=== PATIENT | female | born 1990 | race Caucasian/White ===

== ENCOUNTER 2016-11-05 19:26 | Emergency (ER) | payer OTHER ==
[2016-11-05 20:28] VITALS: BP 127/78; PULSE 91; RESP 18; TEMP 96.3
--- NOTE | 2016-11-05 21:08 | ED ---
ENT HPI - General Chief complaint: ENT Stated complaint: ENT Time Seen by Provider: 11/05/16 20:34 Source: patient, RN notes reviewed, old records reviewed Mode of arrival: ambulatory Limitations: no limitations - History of Present Illness Initial comments: Jone 26-year-old [employer] chief complaint of bilateral ear pain for the past 4 days. Patient reports she can any decongestants. She states that she no cough , fever or chills. Patient reports she has a history of ear tubes. She states that she believes that they did follow out. She denies any significant headache. She denies any pain or tenderness behind her ears. She reports that the right ear feels full, in the left ear she is concerned there is ear wax in it.Patient denies any recent fever, chills, shortness of breath, chest pain, back pain, abdominal pain, nausea vomiting, numbness or tingling, dysuria or hematuria, constipation or diarrhea, headaches or visual changes, or any other current symptoms - Related Data Home Medications Medication Instructions Recorded Confirmed Methadone HCl 60 mg PO DAILY 03/28/15 03/28/15 Previous Rx's Medication Instructions Recorded Ibuprofen [Motrin] 800 mg PO Q8HR #30 tab 03/28/15 Amoxic-Pot Clav 875-125Mg 1 tab PO Q12HR #20 tablet 11/05/16 [Augmentin 875-125] Ofloxacin 0.3% Otic Soln [Floxin 10 drops BOTH EARS BID #1 bottle 11/05/16 0.3% Otic Soln] guaiFENesin-DM 600/30MG [Mucinex 1 each PO Q12HR #20 tab.er.12h 11/05/16 Dm] Allergies Allergy/AdvReac Type Severity Reaction Status Date / Time No Known Allergies Allergy Verified 11/05/16 20:26 Review of Systems ROS Statement: Those systems with pertinent positive or pertinent negative responses have been documented in the HPI. ROS Other: All systems not noted in ROS Statement are negative. Past Medical History Past Medical History: No Reported History History of Any Multi-Drug Resistant Organisms: None Reported Past Surgical History: Section Past Psychological History: Anxiety Smoking Status: Current every day smoker Past Alcohol Use History: None Reported Past Drug Use History: None Reported General Exam - General Exam Comments Initial Comments: Jone 26-year-old female. No distress. Limitations: no limitations General appearance: alert, in no apparent distress Head exam: Present: atraumatic, normocephalic, normal inspection Eye exam: Present: normal appearance, PERRL, EOMI. Absent: scleral icterus, conjunctival injection, periorbital swelling ENT exam: Present: normal exam, mucous membranes moist, TM's normal bilaterally (Left ear canal does have cerumen. TM is visualized is erythematous. Right TM is. Evidence of scarring over the TM. Evidence of fluid behind the TM.) Neck exam: Present: normal inspection. Absent: tenderness, meningismus, lymphadenopathy Respiratory exam: Present: normal lung sounds bilaterally. Absent: respiratory distress, wheezes, rales, rhonchi, stridor Cardiovascular Exam: Present: regular rate, normal rhythm, normal heart sounds. Absent: systolic murmur, diastolic murmur, rubs, gallop, clicks GI/Abdominal exam: Present: soft, normal bowel sounds. Absent: distended, tenderness, guarding, rebound, rigid Extremities exam: Present: normal inspection, full ROM, normal capillary refill. Absent: tenderness, pedal edema, joint swelling, calf tenderness Back exam: Present: normal inspection Neurological exam: Present: alert, oriented X3, CN II-XII intact Psychiatric exam: Present: normal affect, normal mood Skin exam: Present: warm, dry, intact, normal color. Absent: rash Course Vital Signs 11/05/16 20:26 Temperature 96.3 F L Pulse Rate 91 Respiratory 18 Rate Blood Pressure 127/78 O2 Sat by Pulse 100 Oximetry Medical Decision Making - Medical Decision Making Patient is 26-year-old female chief complaint of bilateral ear pain for the past 3 days. She is not taking any decongestants. Right TM does have significant fluid behind the ear. Rinse of bulging. Left TM is erythematous. There is cerumen in the left TM. Discussed we'll put the patient on eardrops as well as taking oral medications. Advised reports a taking ALLERGY medication and decongestant medicine. Patient reports that she plan will comply. Return parameters were discussed. Disposition Clinical Impression: Otitis media, Ear congestion Disposition: HOME SELF-CARE Condition: Good Instructions: Earache (ED) Additional Instructions: is follow-up with primary care provider. Patient is follow-up with ENT specialist after completing antibiotics and drops. Return to emergency Department if any alarming signs or symptoms occur. Prescriptions: Amoxic-Pot Clav 875-125Mg [Augmentin 875-125] 1 tab PO Q12HR #20 tablet Ofloxacin 0.3% Otic Soln [Floxin 0.3% Otic Soln] 10 drops BOTH EARS BID #1 bottle guaiFENesin-DM 600/30MG [Mucinex Dm] 1 each PO Q12HR #20 tab.er.12h Referrals: None,Stated [Primary Care Provider] - 1-2 days Gustavo Latif MD [STAFF PHYSICIAN] - 1-2 days Time of Disposition: 21:06
== END 2016-11-05 21:13 | disposition home or self-care (01) ==
LOC: EC 19:26
DX: H66.93 Otitis media, unspecified, bilateral (principal); F17.200 Nicotine dependence, unspecified, uncomplicated; Z79.891 Long term (current) use of opiate analgesic
CPT/HCPCS: 99283

== ENCOUNTER 2018-04-10 14:48 | Emergency (ER) | payer BC, OTHER ==
[2018-04-10 14:59] VITALS: BP 150/85; PULSE 89; RESP 18; TEMP 98
[2018-04-10] MEDS ORDERED: HYDROcodone/APAP 5-325MG 1 EACH TAB PO STA (15:21)
--- NOTE | 2018-04-10 15:38 | ED ---
General Adult HPI - General Chief complaint: Dental/Oral Stated complaint: Dental pain Time Seen by Provider: 04/10/18 15:06 Source: patient, RN notes reviewed Mode of arrival: ambulatory Limitations: no limitations - History of Present Illness Initial comments: 27-year-old female since to the emergency determine for chief complaint of dental pain times months. Patient states it worsened last night. Patient states it is a sharp shooting pain. Patient states she has not seen a dentist for this. Patient denies fevers or chills at home. She denies any neck stiffness or neck swelling. Patient denies any difficulty swallowing. Patient does admit to mild right upper facial swelling. She denies any eye pain or visual changes. Patient has no other complaints at this time including shortness of breath, chest pain, abdominal pain, nausea or vomiting, headache, or visual changes. - Related Data Home Medications Medication Instructions Recorded Confirmed Methadone HCl 60 mg PO DAILY 03/28/15 03/28/15 Previous Rx's Medication Instructions Recorded Ibuprofen [Motrin] 800 mg PO Q8HR #30 tab 03/28/15 Amoxic-Pot Clav 875-125Mg 1 tab PO Q12HR #20 tablet 11/05/16 [Augmentin 875-125] Ofloxacin 0.3% Otic Soln [Floxin 10 drops BOTH EARS BID #1 bottle 11/05/16 0.3% Otic Soln] guaiFENesin-DM 600/30MG [Mucinex 1 each PO Q12HR #20 tab.er.12h 11/05/16 Dm] Penicillin V Potassium [Pen Vee K] 500 mg PO Q6H 10 Days tablet 04/10/18 Allergies Allergy/AdvReac Type Severity Reaction Status Date / Time No Known Allergies Allergy Verified 04/10/18 14:59 Review of Systems ROS Statement: Those systems with pertinent positive or pertinent negative responses have been documented in the HPI. ROS Other: All systems not noted in ROS Statement are negative. Past Medical History Past Medical History: No Reported History History of Any Multi-Drug Resistant Organisms: None Reported Past Surgical History: Section Past Psychological History: Anxiety Smoking Status: Current every day smoker Past Alcohol Use History: None Reported Past Drug Use History: None Reported General Exam Limitations: no limitations General appearance: alert, in no apparent distress Head exam: Present: atraumatic, normocephalic, normal inspection Eye exam: Present: normal appearance, PERRL, EOMI. Absent: scleral icterus, conjunctival injection, nystagmus, periorbital swelling, other ENT exam: Present: normal exam, mucous membranes moist, TM's normal bilaterally , normal external ear exam. Absent: normal oropharynx (Patient has pain of tooth 4. No grossly evident dental caries noted. No fracture. Gumline was palpated and visually inspected without any evidence of abscess. No sublingual tenderness.) Neck exam: Present: normal inspection, full ROM. Absent: tenderness, meningismus, lymphadenopathy Respiratory exam: Present: normal lung sounds bilaterally. Absent: respiratory distress, wheezes, rales, rhonchi, stridor Cardiovascular Exam: Present: regular rate, normal rhythm, normal heart sounds. Absent: systolic murmur, diastolic murmur, rubs, gallop, clicks Neurological exam: Present: alert, oriented X3, CN II-XII intact Psychiatric exam: Present: normal affect, normal mood Course Vital Signs 04/10/18 14:56 Temperature 98.0 F Pulse Rate 89 Respiratory 18 Rate Blood Pressure 150/85 O2 Sat by Pulse 100 Oximetry Medical Decision Making - Medical Decision Making 27-year-old female presents to the emergency department for a chief complaint of dental pain in tooth 4. Patient states this has been ongoing for months but worsened last night. Patient states the pain is now severe. Patient denies any drainage from the tooth. She denies fevers or chills at home. No neck stiffness or swelling. Patient admits to right-sided facial swelling but no significant swelling is noted on exam. No significant erythema. Patient has tenderness to palpation of tooth 4 without any evidence of fracture or abscess. Patient was given an [place] for pain in the emergency department. Patient was given penicillin. Patient will follow-up with dentist and was given referral to community [facility]. She was educated to return if she has any worsening symptoms including fever chills, worsening pain, increased swelling, or any other additional concerns. Disposition Clinical Impression: Pain, dental Disposition: HOME SELF-CARE Condition: Good Instructions: Toothache (ED) Additional Instructions: Please use ice for pain relief. Please take Motrin and Tylenol as well. Take antibiotic as directed. Follow-up with dentist in 1-2 days. Return to the emergency department if you have any worsening symptoms including increased swelling, fever, spreading redness, drainage, or any other concerns [facility] [place] dental plan: [id number] [facility]. Prescriptions: Penicillin V Potassium [Pen Vee K] 500 mg PO Q6H 10 Days tablet Is patient prescribed a controlled substance at d/c from ED?: No Referrals: Saba Coffey DO [Primary Care Provider] - 1-2 days Time of Disposition: 15:38
== END 2018-04-10 15:43 | disposition home or self-care (01) ==
LOC: EC 14:48
DX: K08.89 Other specified disorders of teeth and supporting structures (principal); F17.200 Nicotine dependence, unspecified, uncomplicated; Z79.891 Long term (current) use of opiate analgesic
CPT/HCPCS: 99282

== ENCOUNTER 2020-07-08 22:39 | Emergency (ER) | payer BC ==
[2020-07-08 22:56] VITALS: BP 150/92; PULSE 121; RESP 20; TEMP 98.4
[2020-07-08] MEDS ORDERED: SULFAMETHOX-TMP 800-160MG 1 EACH TAB PO STA (23:02)
--- NOTE | 2020-07-08 23:10 | ED ---
Skin/Abscess/FB HPI - General Chief complaint: Skin/Abscess/Foreign Body Stated complaint: Facial pain & swelling Time Seen by Provider: 07/08/20 22:48 Source: patient Mode of arrival: ambulatory Limitations: no limitations - History of Present Illness Initial comments: This patient is a 30-year-old woman who presents with complaint of some drainage and a little bit of swelling to the right facial area. The patient notes that she had had a lump for years medial to her right I. She states that over the past couple of days it felt like it was a little more swollen and tender than usual. She also noticed what she described as a pimple-like structure near it that she attempted to drain with a needle yesterday. Since that time she notes that the swelling may have decreased a little but there is still tenderness and a little bit of drainage. She has not noted any systemic symptoms. No fever or chills. The patient does not have any eye complaints. No change in her vision. No pain with extraocular movements. No drainage from the eye. No nasal drainage. She has not had sinus pressure, cough or postnasal drainage. MD complaint: abscess/boil -: days(s) Tetanus Up to Date: yes Location: face Severity: mild Quality: dull Consistency: constant Improves with: none Worsens with: none Context: none Associated symptoms: denies other symptoms Treatments Prior to Arrival: attempted to drain pus at home - Related Data Home Medications Medication Instructions Recorded Confirmed Methadone HCl 60 mg PO DAILY 03/28/15 03/28/15 Previous Rx's Medication Instructions Recorded Ibuprofen [Motrin] 800 mg PO Q8HR #30 tab 03/28/15 Amoxic-Pot Clav 875-125Mg 1 tab PO Q12HR #20 tablet 11/05/16 [Augmentin 875-125] Ofloxacin 0.3% Otic Soln [Floxin 10 drops BOTH EARS BID #1 bottle 11/05/16 0.3% Otic Soln] guaiFENesin-DM 600/30MG [Mucinex 1 each PO Q12HR #20 tab.er.12h 11/05/16 Dm] Penicillin V Potassium [Pen Vee K] 500 mg PO Q6H 10 Days tablet 04/10/18 Sulfamethox-Tmp 800-160Mg [Bactrim 2 each PO Q12HR #28 tab 07/08/20 Ds] Allergies Allergy/AdvReac Type Severity Reaction Status Date / Time No Known Allergies Allergy Verified 07/08/20 22:53 Review of Systems ROS Statement: Those systems with pertinent positive or pertinent negative responses have been documented in the HPI. ROS Other: All systems not noted in ROS Statement are negative. Constitutional: Denies: fever, chills Eyes: Denies: eye pain, eye discharge, vision change ENT: Denies: throat pain, dental pain, congestion Respiratory: Denies: cough, dyspnea Cardiovascular: Denies: chest pain, palpitations Gastrointestinal: Denies: abdominal pain, nausea, vomiting Skin: Reports: as per HPI, lesions Neurological: Denies: headache, weakness Past Medical History Past Medical History: No Reported History History of Any Multi-Drug Resistant Organisms: None Reported Past Surgical History: Section Past Psychological History: Anxiety Smoking Status: Current some day smoker Past Alcohol Use History: None Reported Past Drug Use History: None Reported General Exam Limitations: no limitations General appearance: alert, in no apparent distress Head exam: Present: atraumatic, normocephalic Eye exam: Present: normal appearance, PERRL, EOMI. Absent: scleral icterus, conjunctival injection, nystagmus, periorbital swelling, periorbital tenderness ENT exam: Present: normal oropharynx, mucous membranes moist, TM's normal bilaterally, normal external ear exam, other (At the upper portion of the nasal labial fold the patient does have draining papule with a little bit of erythema and only minimal tenderness. There is no sinus tenderness.) Neck exam: Present: normal inspection, full ROM. Absent: tenderness, lymphadeno morenita Neurological exam: Present: CN II-XII intact Skin exam: Present: warm, dry, intact, normal color. Absent: rash Course Vital Signs 07/08/20 22:53 Temperature 98.4 F Pulse Rate 121 H Respiratory 20 Rate Blood Pressure 150/92 O2 Sat by Pulse 97 Oximetry Medical Decision Making - Medical Decision Making Patient's 30-year-old woman with very early facial cellulitis. Started on treatment here and will continue his prescription. Discussed that infections in this area can quickly turned very serious and reviewed the return parameters with the patient who will be vigilant regarding this area. She will follow-up 24-48 hours to ensure that there is improvement, returning sooner if there is any worsening. Disposition Clinical Impression: Facial cellulitis Disposition: HOME SELF-CARE Condition: Good Instructions (If sedation given, give patient instructions): Cellulitis (ED) Prescriptions: Sulfamethox-Tmp 800-160Mg [Bactrim Ds] 2 each PO Q12HR #28 tab Is patient prescribed a controlled substance at d/c from ED?: No Referrals: Saba Coffey DO [Primary Care Provider] - 1-2 days
== END 2020-07-09 00:04 | disposition home or self-care (01) ==
LOC: EC 22:39
DX: L03.211 Cellulitis of face (principal); F17.200 Nicotine dependence, unspecified, uncomplicated; Z79.891 Long term (current) use of opiate analgesic
CPT/HCPCS: 99283

== ENCOUNTER 2021-07-01 11:44 | Emergency (ER) | payer BC ==
[2021-07-01 12:24] VITALS: BP 129/78; PULSE 93; RESP 18; TEMP 99.2
[2021-07-01] MEDS ORDERED: ACETAMINOPHEN TAB 500 MG TAB PO STA (12:59)
--- NOTE | 2021-07-01 13:55 | ED ---
General Adult HPI - General Chief complaint: Upper Respiratory Infection Stated complaint: Covid symptoms, dental pain Time Seen by Provider: 07/01/21 12:42 Source: patient, RN notes reviewed, old records reviewed Mode of arrival: ambulatory Limitations: no limitations - History of Present Illness Initial comments: 31-year-old female presenting for evaluation of cough, congestion, fever. Patient's symptoms have been present for the past several days. She denies significant dyspnea. She has had poor appetite. She had previously been vaccinated against coronavirus. - Related Data Home Medications Medication Instructions Recorded Confirmed Methadone HCl 60 mg PO DAILY 03/28/15 03/28/15 Previous Rx's Medication Instructions Recorded Ibuprofen [Motrin] 800 mg PO Q8HR #30 tab 03/28/15 Amoxic-Pot Clav 875-125Mg 1 tab PO Q12HR #20 tablet 11/05/16 [Augmentin 875-125] Ofloxacin 0.3% Otic Soln [Floxin 10 drops BOTH EARS BID #1 bottle 11/05/16 0.3% Otic Soln] guaiFENesin-DM 600/30MG [Mucinex 1 each PO Q12HR #20 tab.er.12h 11/05/16 Dm] Penicillin V Potassium [Pen Vee K] 500 mg PO Q6H 10 Days tablet 04/10/18 Sulfamethox-Tmp 800-160Mg [Bactrim 2 each PO Q12HR #28 tab 07/08/20 Ds] Amoxicillin 500 mg PO TID 10 Days #30 cap 07/01/21 Allergies Allergy/AdvReac Type Severity Reaction Status Date / Time No Known Allergies Allergy Verified 07/01/21 12:20 Review of Systems ROS Statement: Those systems with pertinent positive or pertinent negative responses have been documented in the HPI. ROS Other: All systems not noted in ROS Statement are negative. Past Medical History Past Medical History: No Reported History History of Any Multi-Drug Resistant Organisms: None Reported Past Surgical History: Section Past Psychological History: Anxiety Smoking Status: Current some day smoker Past Alcohol Use History: None Reported Past Drug Use History: None Reported General Exam Limitations: no limitations General appearance: alert, in no apparent distress Head exam: Present: atraumatic, normocephalic Eye exam: Present: normal appearance, PERRL ENT exam: Present: normal exam Neck exam: Present: normal inspection. Absent: tenderness, meningismus Respiratory exam: Absent: normal lung sounds bilaterally, respiratory distress, wheezes Cardiovascular Exam: Present: regular rate, normal rhythm GI/Abdominal exam: Present: soft. Absent: distended, tenderness, guarding Extremities exam: Present: normal inspection, normal capillary refill Neurological exam: Present: alert, oriented X3, CN II-XII intact. Absent: motor sensory deficit Psychiatric exam: Present: normal affect, normal mood Skin exam: Present: warm, dry, intact. Absent: cyanosis, diaphoretic Course Vital Signs 07/01/21 07/01/21 12:20 12:48 Temperature 99.2 F Pulse Rate 93 Respiratory 18 18 Rate Blood Pressure 129/78 O2 Sat by Pulse 99 Oximetry Medical Decision Making - Medical Decision Making Patient just as positive for coronavirus. Additionally she qualifies for monoclonal antibodies and is confused was in the emergency department. Return parameters are discussed. She also has a toothache with probable periapical abscess. She'll be started on antibiotics and should follow-up with her dentist. - Lab Data Lab Results 07/01/21 Range/Units 12:27 Coronavirus (PCR) Detected A (Not Detectd) Disposition Clinical Impression: COVID-19, Toothache Disposition: HOME SELF-CARE Condition: Fair Instructions (If sedation given, give patient instructions): Coronavirus Disease 2019 (COVID-19) Prescriptions: Amoxicillin 500 mg PO TID 10 Days #30 cap Is patient prescribed a controlled substance at d/c from ED?: No Referrals: Saba Coffey DO [Primary Care Provider] - 1-2 days Time of Disposition: 13:54
[2021-07-01] MEDS ORDERED: BAMLANIVIMAB (EUA) 700 MG, ETESEVIMAB (EUA) 1,400 MG in SODIUM CHLORIDE 0.9% 50 ML IVPB ONE (14:00)
[2021-07-01] MEDS ORDERED: SODIUM CHLORIDE 0.9% 50 ML IVPB ONE (14:00)
== END 2021-07-01 16:01 | disposition home or self-care (01) ==
LOC: EC 11:44
DX: U07.1 COVID-19 (principal); K08.89 Other specified disorders of teeth and supporting structures; F41.9 Anxiety disorder, unspecified; F17.200 Nicotine dependence, unspecified, uncomplicated
CPT/HCPCS: 99283; M0245; 87635

== ENCOUNTER 2024-05-03 14:27 | Emergency (ER) | payer BC ==
[2024-05-03 14:36] VITALS: TEMP 99.4
--- NOTE | 2024-05-03 14:49 | ED ---
General Adult HPI - General Chief complaint: Skin/Abscess/Foreign Body Stated complaint: R leg rash Time Seen by Provider: 05/03/24 14:38 Source: patient Mode of arrival: ambulatory Limitations: no limitations - History of Present Illness Initial comments: Dictation was produced using [employer] dictation software. please excuse any grammatical, word or spelling errors. Chief Complaint: 33-year-old female presents emergency department with skin infection History of Present Illness: Patient 33-year-old obese female no significant comorbidities presents to the emergency department with skin infection she states that she was bit on her right leg by bugs. She states that a week ago she had a bug bite she was taking some of her leftover amoxicillin from a previous infection. States that she developed another bug bite on her right thigh. Complains of some mild pain and induration. Patient denies any exposure to ticks. She has not been outdoors. No recent travel The ROS documented in this emergency department record has been reviewed and confirmed by me. Those systems with pertinent positive or negative responses have been documented in the HPI. All other systems are other negative and/or noncontributory. - Related Data Home Medications Medication Instructions Recorded Confirmed Buprenorphine HCl/Naloxone HCl 1 tab PO DAILY 07/01/21 07/01/21 [Buprenorphine-Nalox 2-0.5MG Tb] Previous Rx's Medication Instructions Recorded Amoxicillin 500 mg PO TID 10 Days #30 cap 07/01/21 Cephalexin [Keflex] 500 mg PO Q6HR 5 Days #20 cap 05/03/24 Allergies Allergy/AdvReac Type Severity Reaction Status Date / Time No Known Allergies Allergy Verified 05/03/24 14:36 Review of Systems ROS Statement: Those systems with pertinent positive or pertinent negative responses have been documented in the HPI. ROS Other: All systems not noted in ROS Statement are negative. Past Medical History Past Medical History: No Reported History History of Any Multi-Drug Resistant Organisms: None Reported Past Surgical History: Section Past Psychological History: No Psychological Hx Reported Smoking Status: Current some day smoker Past Alcohol Use History: None Reported Past Drug Use History: None Reported General Exam - General Exam Comments Initial Comments: General: Well-appearing, nontoxic, no acute distress. Head: Normocephalic, atraumatic Eyes: PERRLA, EOMI ENT: Airway patent Chest: Nonlabored breathing Skin: 2 inflamed areas to the right anterior thigh. The proximal lesion is indurated without significant erythema. There does appear to be a zafar in the center. She has another distal lesion similar in appearance with some surrounding erythema Neuro: Alert and oriented 3 Musculoskeletal: No gross abnormalities Limitations: no limitations Course Vital Signs 05/03/24 14:33 Temperature 99.4 F Pulse Rate 90 Respiratory 20 Rate Blood Pressure 180/82 O2 Sat by Pulse 96 Oximetry Medical Decision Making - Medical Decision Making Was pt. sent in by a medical professional or institution (, PA, [employer], urgent care, hospital, or detention...) When possible be specific @ -No Did you speak to anyone other than the patient for history (EMS, parent, family, police, friend...)? What history was obtained from this source @ -No Did you review nursing and triage notes (agree or disagree)? Why? @ -I reviewed and agree with nursing and triage notes Were old charts reviewed (outside hosp., previous admission, EMS record, old EKG, old radiological studies, urgent care reports/EKG's, detention records)? Report findings @ -No old charts were reviewed Differential Diagnosis (chest pain, altered mental status, abdominal pain women, abdominal pain men, vaginal bleeding, musculoskeletal, weakness, fever, dyspnea, syncope, headache, dizziness, GI bleed, back pain, seizure, CVA, palpatations, mental health)? @ -Abscess, cellulitis, tickborne illness EKG interpreted by me (3pts min.). @ -None done X-rays interpreted by me (1pt min.). @ -None done CT interpreted by me (1pt min.). @ -None done U/S interpreted by me (1pt. min.). @ -None done What testing was considered but not performed or refused? (CT, X-rays, U/S, labs)? Why? @ -None What meds were considered but not given or refused? Why? @ -None Was smoking cessation discussed for >3mins.? @ -No Were there social determinants of health that impacted care today? How? (Homelessness, low income, unemployed, alcoholism, drug addiction, transportation, low edu. Level, literacy, decrease access to med. care, custodial, rehab)? @ -No Was there de-escalation of care discussed even if they declined (Discuss DNR or withdrawal of care, Hospice)? DNR status @ -No What co-morbidities impacted this encounter? (DM, HTN, Smoking, COPD, CAD, Cance r, CVA, ARF, Chemo, Hep., AIDS, mental health diagnosis, sleep apnea, morbid obesity)? @ -None Was patient admitted / discharged? Hospital course, mention meds given and route, prescriptions, significant lab abnormalities, going to OR and other pertinent info. @ -33-year-old female presents to the emergency department clinical presentation with cellulitis versus skin reaction. Vital signs upon arrival are within acceptable limits. Minimal concern for Lyme's disease given that she has not been exposed to ticks and is not in an endemic area. Patient prescription for Keflex. Patient discharged advised follow-up with primary care doctor. Did you discuss the management of the patient with other professionals (professionals i.e. , PA, [employer]ER [employer]ER, lab, RT, psych nurse, social media assistant, general dentist, teacher, transport corps officer, human services case manager)? Give summary @ -No Was critical care preformed (if so, how long)? @ -No Undiagnosed new problem with uncertain prognosis? @ -No Drug Therapy requiring intensive monitoring for toxicity (Heparin, Nitro, Insulin, Cardizem)? @ -No Were any procedures done? @ -No Diagnosis/symptom? Acute, or Chronic, or Acute on Chronic? Uncomplicated (without systemic symptoms) or Complicated (systemic symptoms)? @ -Cellulitis Side effects of treatment? @ -No Exacerbation, Progression, or Severe Exacerbation? @ -No Poses a threat to life or bodily function? How? (Chest pain, [place], SC, pneumonia, PE, COPD, DKA, ARF, appy, cholecystitis, CVA, Diverticulitis, Homicidal, Suicidal, threat to staff... and all critical care pts) @ -No Disposition Clinical Impression: Cellulitis Disposition: HOME SELF-CARE Condition: Fair Instructions (If sedation given, give patient instructions): Cellulitis (ED) Prescriptions: Cephalexin [Keflex] 500 mg PO Q6HR 5 Days #20 cap Is patient prescribed a controlled substance at d/c from ED?: No Referrals: Saba Coffey DO [Primary Care Provider] - 1-2 days Time of Disposition: 14:49
[2024-05-03 14:58] VITALS: BP 157/93; PULSE 82; RESP 18
== END 2024-05-03 15:03 | disposition home or self-care (01) ==
LOC: EC 14:27
CPT/HCPCS: 99282